=== PATIENT | female | born 1990 | race Caucasian/White ===

== ENCOUNTER 2020-07-17 16:12 | Emergency (ER) | payer MEDICAID ==
[~2020-07-17] VITALS: Ht 170.2 cm; Wt 109.1 kg
--- NOTE | 2020-07-17 16:44 | NUR ---
PT IN BED. STATES HER THROAT FEELS SWOLLEN.
[2020-07-17 17:57] LABS: BASOPHILS % (AUTO) 1 % (0-1); EOSINOPHILS % (AUTO) 2 % (1-7); LYMPHOCYTES % (AUTO) 25 % (22-44); MEAN CORPUSCULAR HEMOGLOBIN 28.6 pg (27.0-34.8); MEAN CORPUSCULAR HGB CONC 33.4 g/dL (32.4-35.8); MEAN PLATELET VOLUME 7.7 fL (7.4-10.4); MONOCYTES % (AUTO) 7 % (2-9); NEUTROPHILS % (AUTO) 65 % (42-75); PLATELET COUNT 324 x10^3/uL (130-400); RED BLOOD COUNT 4.75 x10^6/uL (3.82-5.3); RED CELL DISTRIBUTION WIDTH 15.5 % (9.6-15.2)
[2020-07-17 18:00] LABS: MD NO
[2020-07-17] MEDS ORDERED: HYDROmorphone 1 MG/ML, 1ML INJ IM ONE (18:00)
--- NOTE | 2020-07-17 18:00 | NUR ---
PT STATED "THAT SHE HAS DONE METH IN THE LAST 24HRS
[2020-07-17] MEDS ORDERED: HYDROmorphone 1 MG/ML, 1ML INJ ONE (18:05)
[2020-07-17 18:10] LABS: ALBUMIN 3.9 g/dL (3.4-5.0); ANION GAP 7 mmol/L (5-15); CHLORIDE 111 mmol/L (98-107); CREATININE 0.81 mg/dL (0.55-1.02)
[2020-07-17] MEDS ORDERED: HYDROmorphone 1 MG/ML, 1ML INJ IVPush PRN (18:30)
[2020-07-17] MEDS ORDERED: SODIUM CHLORIDE FLUSH 10ML SYR IVF ONE (18:30)
--- NOTE | 2020-07-17 18:33 | NUR ---
TASK RN: right ac 18ga placed for workup
--- NOTE | 2020-07-17 19:04 | NUR ---
PT SAID "IM HAVING A MINI PANIC ATTACH
[2020-07-17] MEDS ORDERED: OMNIPAQUE 350 MG/ML, 100ML BOTTLE ONE (19:09)
[2020-07-17 20:02] VITALS: BP 152/74
--- NOTE | 2020-07-17 20:11 | NUR ---
PT UPSET ABOUT BEING D/C. PT AGITATED YELLING TO HERSELF BEFORE RN ENTERED THE ROOM. STATED "I CAN'T BELIVE YOUR A RN"
== END 2020-07-17 20:28 | disposition home or self-care (01) ==
LOC: ED 19:54
DX: J02.9 Acute pharyngitis, unspecified (principal); R11.10 Vomiting, unspecified; M54.2 Cervicalgia
CPT/HCPCS: 36415; 70360; 70491; 80048; 82040; 85025; 87081; 87880; 99285; Q9967